=== PATIENT | female | born 1990 | race Caucasian/White ===

== ENCOUNTER → 2017-01-01 | Outpatient (CLI) | payer OTHER ==
[~2017-01-01] MED LIST: PRENTAB55 PO
--- NOTE | 2017-01-01 14:48 | REP ---
Clinical: Abnormal HCG levels. Technique: First trimester transabdominal and transvaginal ultrasound examination with color Doppler evaluation. Findings: Anteverted uterus measures 8.5 x 4.6 x 5.3 cm. A gestational sac with mean sac diameter of 11 mm corresponds to 5-week 6 days gestational age. No yolk sac or pole is identified. Maternal ovaries are normal in appearance and vascularity without torsion. Right ovary measures 2.9 x 2.5 x 2.7 cm; RI = 0.69. Left ovary measures 3.4 x 2.3 x 3.2 cm with 1.4 cm corpus luteal cyst; RI = 0.72. No pelvic fluid or adnexal mass lesion. Impression: Gestational sac without yolk sac or pole. Differential diagnosis includes spontaneous , blighted ovum, and early . Correlation with serial HCG levels recommended. In such cases, ectopic cannot definitively be excluded. Signed by Jean-Paul Austin MD 01/01/2017 02:40 P
== END ==
LOC: M RAD 13:57
PROVIDERS: ATTEND Student in an Organized Health Care Education/Training Program
DX: R79.9 Abnormal finding of blood chemistry, unspecified (principal)

== ENCOUNTER 2017-01-05 19:00 | Emergency (ER) | payer OTHER ==
[~2017-01-05] VITALS: Ht 160 cm; Wt 65.4 kg
[2017-01-05] MEDS ORDERED: PRENTAB55 PO (19:11)
[2017-01-05] MEDS ORDERED: ONDANSETRON 4 MG ORAL DISINTEGRATING TAB (S0181) PO ONE (19:30)
[2017-01-05] MEDS ORDERED: NAPROXEN 250 MG TAB PO ONE (19:30)
--- NOTE | 2017-01-05 20:40 | REPUSA ---
Clinical history: vaginal bleeding. Findings: Real-time transabdominal and transvaginal ultrasound images of the pelvis were obtained. Th ere is a single intrauterine in the lower uterine segment. The crown rump length measures 2 .1 mm. Cardiac activity is not seen at this time. An anteverted uterus is noted, measuring 9.3 x 4.4 x 5.0 cm. The uterus demonstrates normal echotexture and echogenicity. The right ovary measures 3.3 x 1.7 x 3.0 cm. The left ovary measures 3.3 x 2.8 x 3.1 cm. There is a complex left ovarian cyst, anthony uring 1.4 x 1.2 x 1.5 cm. No adnexal masses are seen. Color Doppler flow is seen within both ovaries. There is no evidence of free fluid. Impression: 1. Suspected intrauterine gestational sac in the lower uterine segment with pole measuring 5 we eks 5 days by ultrasound measurements. No cardiac activity is demonstrated. These findings suggest an in progress. Follow-up is suggested as clinically indicated. 2. Left ovarian corpus luteum cyst.
[2017-01-05 20:46] LABS: BASO % 0.6 % (0.0-1.0); EOS # 0.1 K/mm3 (0.0-0.50); EOS % 1.2 % (0.0-3.0); LARGE UNSTAINED CELL # 0.1 K/mm3 (0.0-0.4); LARGE UNSTAINED CELL % 1.1 % (0.0-4.0); LYMPH % 20.4 % (24.0-44.0); MEAN CORPUSCULAR HGB CONC 34.1 g/dl (32.0-36.5); MONO # 0.5 K/mm3 (0.0-0.8); MONO % 5.8 % (0.0-5.0); NEUTROPHILS # 6.5 K/mm3 (1.8-7.7); PLATELET COUNT, AUTOMATED 264 k/mm3 (150-450); RED CELL DISTRIBUTION WIDTH 12.2 % (11.5-14.5); WHITE BLOOD COUNT 9.1 K/mm3 (4.0-10.0)
[2017-01-05 21:36] VITALS: BP 134/77
== END 2017-01-05 21:39 | disposition home or self-care (01) ==
LOC: M ED 19:00
DX: O20.0 Threatened abortion (principal); Z3A.01 Less than 8 weeks gestation of pregnancy

== ENCOUNTER → 2017-01-07 | Outpatient (REF) ==
[2017-01-20 12:41] LABS: CHROMPC1 SEE SEPARATE REPORT
== END ==
LOC: M LAB REF 10:30
PROVIDERS: ATTEND Student in an Organized Health Care Education/Training Program
DX: O03.9 Complete or unspecified spontaneous abortion without complication (principal)